=== PATIENT | female | born 1995 | race Caucasian/White ===

== ENCOUNTER 2016-05-20 13:25 | Emergency (ER) | payer OTHER, BC ==
[~2016-05-20] VITALS: Ht 144.8 cm; Wt 55.5 kg
[2016-05-20 13:34] VITALS: BP 122/83; PULSE 110; RESP 20; TEMP 97.3; O2SAT 100
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
[2016-05-20] MEDS ORDERED: ACETAMINOPHEN 325 MG TAB PO ONE (14:00)
[2016-05-20 14:08] LABS: BLOOD, URINE NEG (NEG); GLUCOSE,URINE NEG (NEG); KETONE, URINE NEG (NEG); NITRITE,URINE NEG (NEG)
[2016-05-20 14:12] LABS: METHOD OF COLLECTION CLEAN CATCH; RBC, URINE 0-3 /hpf (0-3); URINE COLOR YELLOW (YELLW/STRAW)
[2016-05-20 14:13] LABS: COMMENT (UR) CULT NOT INDICATED; CULTURE IF INDICATED CULT NOT INDICATED; SQUAMOUS EPITHELIAL CELL URINE 0-5 /hpf (0-5)
== END 2016-05-20 15:46 | disposition home or self-care (01) ==
LOC: PHED 13:25
DX: S30.0XXA Contusion of lower back and pelvis, initial encounter (principal); R51 Headache; R00.0 Tachycardia, unspecified; Z72.0 Tobacco use; V49.88XA Car occupant (driver) (passenger) injured in other specified transport accidents, initial encounter; Y92.410 Unspecified street and highway as the place of occurrence of the external cause
CPT/HCPCS: 81001; 99284